=== PATIENT | male | born 1950 | race Caucasian/White ===

== ENCOUNTER 2017-11-20 21:01 | Inpatient (IN) | payer OTHER, BC ==
[~2017-11-20] VITALS: Ht 180.3 cm; Wt 115.5 kg
[~2017-11-20 21:01] MED LIST: AMBIEN CR6.25 MG PO; ANDRODERM1 EAC1 TD; CELEBREX200 MG PO; COUMADIN1 MG PO; COUMADIN2.5 MG PO; ERGOCALCIF50000 UNIT PO; FERROUS SULFAT325 MG PO; FLEXERIL10 MG PO; FLONASE ALLERG9.9 ML BOTH NARES; KLONOPIN0.5 M1 PO; LEXAPRO10 MG PO; LISINOPRIL40 MG PO; LO-DOSE ASPIRIN81 M2 PO; MONOPRIL HCT1 TABLE1 PO; MONOPRIL40 MG PO; OMEPRAZOLE20 MG PO; PERCOCET 5/31 TABLET PO; TRAMADOL HCL50 MG PO; VISTARIL25 MG PO; ZOFRAN4 MG PO
[2017-11-21 10:36] VITALS: BP 172/88
[2017-11-21 17:21] VITALS: BP 180/91
[2017-11-21 20:07] VITALS: BP 129/74
[2017-11-21 21:46] VITALS: BP 135/68
[2017-11-22 00:05] VITALS: BP 167/75
[2017-11-22 04:22] VITALS: BP 165/84
[2017-11-22 08:12] VITALS: BP 176/84
[2017-11-22 12:15] VITALS: BP 159/81
[2017-11-22 16:02] VITALS: BP 169/82
[2017-11-22 20:28] VITALS: BP 137/81
[2017-11-23 00:25] VITALS: BP 110/68
[2017-11-23 04:18] VITALS: BP 112/63
[2017-11-23 08:00] VITALS: BP 126/74
[2017-11-23 12:00] VITALS: BP 128/63
[2017-11-23 15:49] VITALS: BP 142/67
[2017-11-23 20:20] VITALS: BP 140/93
[2017-11-24 00:30] VITALS: BP 133/86
[2017-11-24 04:21] VITALS: BP 134/66
[2017-11-24 08:11] VITALS: BP 129/67
[2017-11-24] MEDS ORDERED: ELIQUIS2.5 MG PO (09:08)
[2017-11-24] MEDS ORDERED: ENDOCET 5-3251 EACH PO (09:09)
[2017-11-24 12:13] VITALS: BP 116/59
== END 2017-11-24 14:57 | DRG 470 ==
LOC: ENRESERV 21:01 → 2SOUTH 11-21 10:02 → 3WEST 11-21 10:02 → 2SOUTH 11-21 11:07 → 3WEST 11-21 16:47
PROC: 0SRD0J9 Replacement of Left Knee Joint with Synthetic Substitute, Cemented, Open Approach (ICD-10-PCS; principal; 2017-11-21)
PROC: 3E0T3BZ Introduction of Anesthetic Agent into Peripheral Nerves and Plexi, Percutaneous Approach (ICD-10-PCS; 2017-11-21)
DX: M17.12 Unilateral primary osteoarthritis, left knee (principal); I10 Essential (primary) hypertension; K21.9 Gastro-esophageal reflux disease without esophagitis; Z96.651 Presence of right artificial knee joint; Z79.82 Long term (current) use of aspirin
CPT/HCPCS: 71045; C1713; J0690; J1885; J2250; J2795; J7050; J7120; S0020